=== PATIENT | female | born 1995 | race Caucasian/White ===

== ENCOUNTER 2017-10-08 20:23 | Emergency (ER) | payer BC ==
[2017-10-08 20:41] VITALS: BP 131/95
--- NOTE | 2017-10-08 21:20 | UC ---
Eye Complaint HPI - HPI Summary HPI Summary: today while wearing her contacts she developed an itchy red right eye-she has taken out her contact, other members of her house have conjunctivitis - History of Current Complaint Chief Complaint: UCRespiratory Stated Complaint: EYE IRRITATION Time Seen by Provider: 10/08/17 21:19 Hx Obtained From: Patient Hx Last Menstrual Period: 10/05/2017 ?: No Onset/Duration: Sudden Onset, Lasting Days - 1 Timing: Constant Severity Initially: Mild Severity Currently: Mild Pain Intensity: 3 Pain Scale Used: 0-10 Numeric Location of Injury: Conjunctiva Aggravating Factor(s): Nothing Alleviating Factor(s): Nothing Associated Signs And Symptoms: Positive: Drainage (Clear) - Allergies/Home Medications Allergies/Adverse Reactions: Allergies Allergy/AdvReac Type Severity Reaction Status Date / Time amoxicillin Allergy Hives Verified 10/08/17 20:33 Home Medications: Home Medications Bcp 1 tab PO DAILY 10/08/17 [History] PMH/Surg Hx/FS Hx/Imm Hx Previously Healthy: Yes - Surgical History Surgical History: None - Family History Known Family History: Positive: None - Social History Occupation: Student Lives: Dormitory/Roommates Alcohol Use: Occasionally Substance Use Type: None Smoking Status (MU): Never Smoked Tobacco Review of Systems Constitutional: Negative Skin: Negative Eyes: Drainage - right, Eye Redness - right ENT: Negative Respiratory: Negative Cardiovascular: Negative Gastrointestinal: Negative Genitourinary: Negative Motor: Negative Neurovascular: Negative Musculoskeletal: Negative Neurological: Negative Psychological: Negative Is Patient Immunocompromised?: No All Other Systems Reviewed And Are Negative: Yes Physical Exam Triage Information Reviewed: Yes Appearance: Well-Appearing, No Pain Distress, Well-Nourished Vital Signs: Initial Vital Signs Temp 99.3 F 10/08/17 20:35 Pulse 92 10/08/17 20:35 Resp 18 10/08/17 20:35 BP 131/95 10/08/17 20:35 Pulse Ox 100 10/08/17 20:35 Vital Signs Reviewed: Yes Eye Exam: Normal - os Eyes: Positive: Conjunctiva Inflamed - od, Discharge - od clear drainage ENT Exam: Normal ENT: Positive: Normal ENT inspection, Hearing grossly normal, Pharynx normal, TMs normal. Negative: Nasal congestion, Nasal drainage, Tonsillar swelling, Tonsillar exudate, Trismus, Muffled voice, Hoarse voice, Dental tenderness Dental Exam: Normal Neck exam: Normal Neck: Positive: Supple, Nontender Respiratory Exam: Normal Respiratory: Positive: No respiratory distress, No accessory muscle use Cardiovascular Exam: Normal Cardiovascular: Positive: Pulses Normal, Brisk Capillary Refill Musculoskeletal Exam: Normal Musculoskeletal: Positive: Strength Intact, ROM Intact, No Edema Neurological Exam: Normal Neurological: Positive: Alert, Muscle Tone Normal Psychological Exam: Normal Skin Exam: Normal Re-Evaluation - Re-Evaluation First Eval Change: Unchanged - patient tolerated eye exam well no eric. uptake Eye Complaint Course/Dx - Course Course Of Treatment: No contact, Polytrim eye drops follow with Dr. Urbina or return as needed - Differential Dx/Diagnosis Provider Diagnoses: OD Conjuctivitis Discharge - Discharge Plan Condition: Stable Disposition: HOME Patient Education Materials: How to Use Eye Drops (ED), Conjunctivitis (ED) Referrals: [facility] - Guzman MARIE [Primary Care Provider] - If Needed Carlos Urbina MD [Medical Doctor] - If Needed
[2017-10-08] MEDS ORDERED: Fluorescein Sod TOPICAL 0.6* 0.6 MG TEST OPHTHALMIC ONE (21:26)
[2017-10-08] MEDS ORDERED: BSS OPTH.SOL* BTL OPHTHALMIC ONE (21:26)
[2017-10-08] MEDS ORDERED: Polymyx/Trimethoprim OPTH* 10 ML BTL RIGHT EYE ONE (21:52)
== END 2017-10-08 22:05 | disposition home or self-care (01) ==
LOC: UCEAST 20:23
DX: H10.9 Unspecified conjunctivitis (principal)
CPT/HCPCS: 99202; A9270-GY; G0463